=== PATIENT | female | born 1990 | race Hispanic/Latino ===

== ENCOUNTER 2023-06-09 15:30 | Observation (INO) | payer MEDICAID, SELFPAY ==
[2023-06-09 16:05] VITALS: BMI 31.4
[2023-06-09] MEDS ORDERED: hydrALAZINE 20 MG/ML VIAL SLOW IVP PRN (16:36)
[2023-06-09 17:12] LABS: Fetal Membranes Rupture RUPTURE DETECTED (No Rupture)
[2023-06-09] MEDS ORDERED: Azithromycin 250 MG TAB PO SCH (23:00)
[2023-06-09] MEDS ORDERED: Azithromycin 1,000 MG in Sodium Chloride 0.9% 500 ML IVPB SCH (23:59)
[2023-06-10] MEDS: Betamet Acet/Betamet Na Ph 30 MG/5 ML VIAL IM SCH (00:02)
[2023-06-10] MEDS: Ampicillin 2 GM in Sodium Chloride 0.9% 100 ML IVPB SCH ×4 (00:27→17:44)
[2023-06-11] MEDS: Ampicillin 2 GM in Sodium Chloride 0.9% 100 ML IVPB SCH ×3 (00:22→12:24)
[2023-06-11] MEDS: Betamet Acet/Betamet Na Ph 30 MG/5 ML VIAL IM SCH (00:23)
[2023-06-11 11:20] VITALS: BP 95/55; TEMP 98.5
[2023-06-11 12:31] LABS: Fetal Membranes Rupture No Membranes Rupture (No Rupture)
[2023-06-11 13:53] LABS: Group B Streptococcus by PCR Not Detected (NotDetected)
== END 2023-06-11 16:10 | disposition short-term general hospital, planned readmission (82) ==
LOC: CSHLD/OP 15:30 → CSHLD 23:02 → CSHANTE 06-10 10:00
PROVIDERS: ADMIT Emergency Medicine; ATTEND Emergency Medicine
DX: O41.8X30 Other specified disorders of amniotic fluid and membranes, third trimester, not applicable or unspecified (principal); O42.913 Preterm premature rupture of membranes, unspecified as to length of time between rupture and onset of labor, third trimester; O23.93 Unspecified genitourinary tract infection in pregnancy, third trimester; R82.71 Bacteriuria; Z3A.32 32 weeks gestation of pregnancy; Z87.59 Personal history of other complications of pregnancy, childbirth and the puerperium
CPT/HCPCS: 76815; 84112; 87480; 87510; 87653; 87660; 96372; 96374; 96376; 99285; G0378; J0290; J0702; J3490

== ENCOUNTER 2023-08-02 18:32 | Day surgery (SDC) | payer MEDICAID ==
[2023-08-02] MEDS ORDERED: hydrALAZINE 20 MG/ML VIAL SLOW IVP PRN (19:52)
== END 2023-08-02 22:56 | disposition home or self-care (01) ==
LOC: CSHLD/OP 18:32
PROVIDERS: ATTEND Family Medicine
DX: O36.8130 Decreased fetal movements, third trimester, not applicable or unspecified (principal); O47.1 False labor at or after 37 completed weeks of gestation; Z3A.40 40 weeks gestation of pregnancy
CPT/HCPCS: 76819

== ENCOUNTER 2023-08-03 15:34 | Inpatient (IN) | payer MEDICAID ==
[2023-08-03] MEDS ORDERED: Butorphanol Tartrate 1 MG/ML VIAL SLOW IVP PRN (16:15)
[2023-08-03] MEDS ORDERED: Promethazine HCl 25 MG/ML VIAL IM PRN (16:15)
[2023-08-03] MEDS ORDERED: Lactated Ringer's 1,000 ML IV SCH (16:15)
[2023-08-03] MEDS ORDERED: Ondansetron PF 4 MG/2 ML Vial IVP PRN (16:15)
[2023-08-03] MEDS ORDERED: Carboprost 250 MCG/ML AMP IM PRN (16:15)
[2023-08-03] MEDS ORDERED: Methylergonovine 0.2 MG/ML VIAL IM PRN (16:15)
[2023-08-03] MEDS ORDERED: Diphenoxylate HCl/Atropine Tablet PO PRN (16:15)
[2023-08-03] MEDS ORDERED: Tranexamic Acid 1,000 MG/10 ML VIAL IVP PRN (16:15)
[2023-08-03] MEDS ORDERED: Misoprostol 200 MCG TAB PR PRN (16:15)
[2023-08-03] MEDS ORDERED: Lidocaine 1% (PF) 30 ML VIAL SC PRN (16:15)
[2023-08-03] MEDS ORDERED: fentaNYL 50 mcg/mL 1 mL Vial SLOW IVP PRN (16:15)
[2023-08-03] MEDS ORDERED: Ibuprofen 800 MG TAB PO PRN (16:15)
[2023-08-03] MEDS ORDERED: Docusate 100 MG CAP PO PRN (16:15)
[2023-08-03] MEDS ORDERED: NS w/ Oxytocin 30 units 500 ML IV SCH (16:15)
[2023-08-03] MEDS ORDERED: Acetaminophen 500 MG TAB PO PRN (16:15)
[2023-08-03] MEDS ORDERED: hydrALAZINE 20 MG/ML VIAL SLOW IVP PRN ×2 (16:15→17:20)
[2023-08-03] MEDS ORDERED: fentaNYL/Ropivacaine Epidural 100 ML ONE (16:32)
[2023-08-03 16:33] LABS: Hematocrit 40.5 % (34.9-44.5); Hemoglobin 13.9 g/dL (12.0-15.5); Mean Corpuscular HGB CONC 34.3 g/dL (32.0-36.0); Mean Corpuscular Hemoglobin 30.3 pg (27.0-33.0); Mean Corpuscular Volume 88.4 fl (81.6-98.3); Mean Platelet Volume 10.6 fl (7.4-10.4); Platelet Count 264 10x3/uL (150-450); RBC Distribution Width 13.8 % (11.5-14.5); Red Blood Cell (RBC) Count 4.58 10x6/uL (3.90-5.03); White Blood Cell (WBC) Count 12.8 10x3/uL (3.5-10.5)
[2023-08-03 17:06] LABS: HBSAg Index 0.15 S/CO (0-0.99); HIV (1/2) Antibody/Antigen Non-Reactive (NonReactive); HIV 1/2 INDEX 0.09 S/CO (<1.00); Hep B Surf Ag - L&D Non-Reactive S/CO (NonReactive)
[2023-08-03 17:07] LABS: Syphilis Antibody Nonreactive (Nonreactive); Syphilis Antibody Index 0.02 S/CO (<1.00 Non-Reactive)
[2023-08-03] MEDS ORDERED: Boostrix 0.5 ML (Tdap) VIAL (>/=7 yrs of age) IM ONE (17:20)
[2023-08-03] MEDS ORDERED: Bisacodyl 10 MG SUPP PR PRN (17:20)
[2023-08-03] MEDS ORDERED: Milk Of Magnesia 30 ML UDCUP PO PRN (17:20)
[2023-08-03] MEDS: Docusate 100 MG CAP PO SCH (21:55)
[2023-08-03] MEDS: Ibuprofen 800 MG TAB PO SCH (21:55)
[2023-08-04 04:00] LABS: #Monocytes 1.1 10x3/uL (0.0-1.1); #Neutrophils 10.6 10x3/uL (1.5-8.4); %Basophils 0.2 % (0.0-2.0); %Eosinophils 0.3 % (0.0-6.0); %Lymphocytes 17.6 % (18.0-47.0); %Monocytes 7.6 % (0.0-10.0); %Neutrophils 73.6 % (40.0-75.0); Hematocrit 38.8 % (34.9-44.5); Hemoglobin 13.1 g/dL (12.0-15.5); Mean Corpuscular HGB CONC 33.8 g/dL (32.0-36.0); Mean Corpuscular Hemoglobin 30.9 pg (27.0-33.0); Mean Corpuscular Volume 91.5 fl (81.6-98.3); Mean Platelet Volume 11.1 fl (7.4-10.4); Platelet Count 258 10x3/uL (150-450); RBC Distribution Width 13.5 % (11.5-14.5); Red Blood Cell (RBC) Count 4.24 10x6/uL (3.90-5.03); White Blood Cell (WBC) Count 14.4 10x3/uL (3.5-10.5)
[2023-08-04] MEDS: Ibuprofen 800 MG TAB PO SCH ×2 (05:27→15:33)
[2023-08-04] MEDS: Docusate 100 MG CAP PO SCH (07:32)
[2023-08-04] MEDS: Ferrous Sulfate 325 MG TAB PO SCH ×2 (15:33→17:42)
[2023-08-04 20:55] VITALS: BP 100/56; TEMP 98.3
== END 2023-08-04 20:56 | disposition home or self-care (01) | DRG 807 ==
LOC: CSHLD/OP 15:34 → CSHLD 16:32 → CSHPED 19:55
PROVIDERS: ADMIT Obstetrics & Gynecology; ATTEND Obstetrics & Gynecology
PROC: 10E0XZZ Delivery of Products of Conception, External Approach (ICD-10-PCS; principal; 2023-08-03)
DX: O48.0 Post-term pregnancy (principal); Z37.0 Single live birth; O69.81X0 Labor and delivery complicated by cord around neck, without compression, not applicable or unspecified; Z3A.40 40 weeks gestation of pregnancy; O36.8130 Decreased fetal movements, third trimester, not applicable or unspecified
CPT/HCPCS: 36415; 85025; 85027; 86780; 86850; 86900; 86901; 87340; 87389; 99285; J2210; J2590; J7120

== ENCOUNTER 2025-09-11 10:09 | Emergency (ER) | payer SELFPAY ==
[2025-09-11] MEDS ORDERED: Ondansetron PF 4 MG/2 ML Vial ONE (10:35)
[2025-09-11] MEDS ORDERED: Ketorolac Tromethamine 30 MG (1 mL) VIAL ONE (10:36)
[2025-09-11 10:56] LABS: #Basophils Less than 0.03 10x3/uL (0.0-0.2); #Eosinophils 0.17 10x3/uL (0.0-0.5); #Monocytes 0.51 10x3/uL (0.0-1.1); #Neutrophils 3.48 10x3/uL (1.5-8.4); %Basophils 0.3 % (0.0-2.0); %Eosinophils 2.3 % (0.0-6.0); %Lymphocytes 43.2 % (18.0-47.0); %Monocytes 6.9 % (0.0-10.0); %Neutrophils 47.2 % (40.0-75.0); Hematocrit 40.9 % (34.9-44.5); Hemoglobin 13.7 g/dL (12.0-15.5); Mean Corpuscular Hemoglobin 30.7 pg (27.0-33.0); Mean Corpuscular Volume 91.7 fL (81.6-98.3); Platelet Count 283 10x3/uL (150-450); Red Blood Cell (RBC) Count 4.46 10x6/uL (3.90-5.03); White Blood Cell (WBC) Count 7.38 10x3/uL (3.5-10.5)
[2025-09-11 11:03] LABS: BHCG - Serum Negative (NEGATIVE); Pregs Control Background? CLEAR/WHITE (CLR/WHITE); Pregs Control Bar Appear? YES (CONTROL BAR)
[2025-09-11 11:09] LABS: ALT (SGPT) 28 U/L (Less than 34); AST (SGOT) 25 U/L (11-34); Albumin 4.1 g/dL (3.1-4.5); Alkaline Phosphatase 72 U/L (40-110); Anion Gap 9 mmol/L (10-20); BUN (Urea Nitrogen) 12 mg/dL (7.0-18.7); Bilirubin, Total 0.4 mg/dL (0.3-1.2); Calc. Creatinine Clearance 0 mL/min (70-130); Calcium 8.6 mg/dL (7.8-10.44); Carbon Dioxide 24 mmol/L (22-29); Chloride 109 mmol/L (98-107); Globulin 2.9 g/dL (2.4-3.5); Glucose 97 mg/dL (70-105); Lipase 15 U/L (8-78); Potassium 3.9 mmol/L (3.5-5.1); Sodium 138 mmol/L (136-145)
== END 2025-09-11 13:07 | disposition home or self-care (01) ==
LOC: CSHERS 10:09
DX: K80.20 Calculus of gallbladder without cholecystitis without obstruction (principal); Z55.6 Problems related to health literacy
CPT/HCPCS: 36415; 76705; 80053; 83690; 84703; 85025; 96374; 96375; J1885